=== PATIENT | female | born 1930 | race Caucasian/White ===

== ENCOUNTER 2017-05-10 16:52 | Emergency (ER) | payer OTHER, MEDICARE ==
[~2017-05-10] VITALS: Ht 149.9 cm; Wt 49.9 kg
--- NOTE | 2017-05-10 17:46 | ED SKIN/ALLERGY COMPLAINT ---
History of Present Illness General Chief Complaint: General Adult Stated Complaint: "PER DAUGTHER,"WALKIN SENT TO GET IV" Source: patient, family Exam Limitations: no limitations Vital Signs & Intake/Output Vital Signs & Intake/Output Vital Signs Date Time Temp Pulse Resp B/P B/P Pulse O2 O2 Flow FiO2 Mean Ox Delivery Rate 05/10 1704 97.2 81 16 172/78 94 Room Air Allergies Coded Allergies: clarithromycin (From BIAXIN) (UNKNOWN 05/10/17) Reconcile Medications Cephalexin (Keflex) 500 MG CAPSULE 1 CAP PO TID cellulitis Triage Note: PT WAS SENT IN BY WALK IN FOR CELLULITIS LLE. PT STATES SHE SHAVED HER LEG AND IT GOT AN INFECTION WALK IN FELT SHE NEEDED IV ABX. Triage Nurses Notes Reviewed? yes Onset: Gradual Duration: worse persistent since (2 days) Timing: no prior history Severity: moderate Severity Numbers: 5 Location: extremities Possible Factors: recent cut No Modifying Factors: none Associated Symptoms: redness/swelling HPI: Patient is an 86-year-old female presenting to the emergency department with her daughter with chief complaint of laceration to left lower extremity and on Friday of this week and over the past 2 days they have noticed increased redness around the laceration site. No history of diabetes. Patient denies any pain. She does report that she noticed redness. The daughter tried to bring her to a walk-in clinic this evening and they thought that she may need IV antibiotics so they sent her in for evaluation. Patient denying any fevers or chills. No malaise. Denies chest pain palpitations or shortness of breath. Has not been taking anything for the Symptoms. Denies any discharge from the wound. (Brittany George) Past History Travel History Traveled to [place] past 21 day No Medical History Any Pertinent Medical History? see below for history Cardiovascular: hypertension, hyperlipidemia, [place] 2015 Musculoskeletal: osteoarthritis Surgical History Surgical History: non-contributory Psychosocial History What is your primary language Urdu Tobacco Use: Never used ETOH Use: denies use Illicit Drug Use: denies illicit drug use Family History Hx Contributory? No (Brittany George) Review of Systems Review of Systems Constitutional: Reports: no symptoms. Comments Review of systems: See HPI, All other systems negative. Constitutional, no chills fever or weight loss HEENT: No visual changes no sore throat no congestion Cardiovascular: No chest pain ,palpitation , orthopnea or ankle swelling Skin, no jaundice Respiratory: No dyspnea cough sputum or hemoptysis GI: No nausea no vomiting : No dysuria No hematuria Muscle skeletal: no back pain, no neck pain, Neurologic: No numbness no confusion no headaches Psych: No stress anxiety or depression,. Heme/endocrine: No bruising no bleeding no polyuria or polydipsia Immunology: No splenectomy or history of AIDS (Brittany George) Physical Exam Physical Exam General Appearance: well developed/nourished, no apparent distress, alert, awake , comfortable Comments: Well-developed well-nourished person in no acute distress HEENT: Atraumatic, normocephalic Neck: Normal inspection Back: Nontender, no CVA tenderness. Full range of motion Cardiovascular: Regular rate and rhythms no murmurs rubs or gallops, normal JVP Respiratory: Chest nontender. No respiratory distress.breath sounds clear to auscultation bilaterally Extremity: No calf pain to palpation bilaterally in the lower extremities. Pedal pulses are 2+ bilaterally. 1+ pitting edema noted in the left lower extremity surrounding the laceration. Full range of motion of flexion without difficulty or pain. Neuro: Alert oriented x3, motor sensory normal Skin: Patient has healing laceration approximately 8 cm in length over the left posey with surrounding erythema approximately 4-5 cm, warm to palpation in this area. No drainage or discharge noted from the laceration. Laceration appears superficial. Psych: Mood and affect is normal, memory and judgment is normal. (Brittany George) Progress Differential Diagnosis: abscess/cellulitis, skin abrasion, laceration, contusion Plan of Care: Orders Procedure Date/time Status BLOOD CULTURE 05/10 1744 Active COMPREHENSIVE METABOLIC PANEL 05/10 1744 Complete CBC WITHOUT DIFFERENTIAL 05/10 1744 Complete Laboratory Tests 05/10/17 1750: Anion Gap 14, Estimated GFR 59 L, BUN/Creatinine Ratio 26.7 H, Glucose 138 H, Calcium 10.0, Total Bilirubin 0.3, AST 32, ALT 32, Alkaline Phosphatase 49, Total Protein 7.2, Albumin 4.2, Globulin 3.0, Albumin/Globulin Ratio 1.4, CBC w Diff NO MAN DIFF REQ, RBC 4.08 L, MCV 90.2, MCH 30.6, RDW 13.2, MPV 9.2, Gran % 62.0, Lymphocytes % 25.4, Monocytes % 9.9 H, Eosinophils % 2.0, Basophils % 0.7 , Absolute Granulocytes 5.0, Absolute Lymphocytes 2.1, Absolute Monocytes 0.8 H , Absolute Eosinophils 0.2, Absolute Basophils 0.1, PUBS MCHC 33.9 Microbiology 05/10 1806 BLOOD: Blood Culture - RECD 05/10 1749 BLOOD: Blood Culture - RECD 05/10/2017 6:18:23 PM patient is afebrile, in no acute distress, no history of diabetes. We will check blood work. Patient may make good outpatient candidate for oral antibiotics and follow up closely with primary care physician. 05/10/2017 6:34:17 PM patient still afebrile, no elevation in white blood cell count. Patient receiving IV Unasyn at this time. She'll be discharged home with by mouth Keflex starting tomorrow. She'll follow up with her primary care physician on Friday. She was instructed on signs and symptoms to return. Discussed with Dr. Tidwell and he agrees with the plan. (Brittany George) Departure Departure Time of Disposition: 1830 Disposition: HOME OR SELF CARE Condition: Stable Clinical Impression Primary Impression: Cellulitis Qualifiers: Site of cellulitis: extremity Site of cellulitis of extremity: lower extremity Laterality: left Qualified Code: L03.116 - Cellulitis of left lower limb Secondary Impressions: Hypertension Qualifiers: Hypertension type: essential hypertension Qualified Code: I10 - Essential (primary) hypertension Referrals: Ela TAYLOR,Ev Monge (PCP/Family) Additional Instructions: Follow-up with your primary care physician on Friday for a wound check. Keep area clean. Wash daily with soap and water. Take antibiotics as prescribed. Start antibiotics tomorrow May 11. Take [id number] Tylenol for any aches or pains. Return if you develop any fevers worsening redness or concerns. Departure Forms: Customer Survey General Discharge Information Prescriptions: Current Visit Scripts Cephalexin (Keflex) 1 CAP PO TID #30 CAP (Brittany George) PA/MAIL FORWARDING SYSTEM MARKUP CLERK Co-Sign Statement Statement: ED Attending supervision documentation- [X] I saw and evaluated the patient. I have also reviewed all the pertinent lab results and diagnostic results. I agree with the findings and the plan of care as documented in the PA's/MAIL FORWARDING SYSTEM MARKUP CLERK's documentation. [X] I have reviewed the ED Record and agree with the PA's/MAIL FORWARDING SYSTEM MARKUP CLERK's documentation. [] Additions or exceptions (if any) to the PAs/MAIL FORWARDING SYSTEM MARKUP CLERK's note and plan are summarized below: [] (Yaw TAYLOR,Juanito Arnold)
[2017-05-10 18:10] LABS: ABSOLUTE BASOPHIL COUNT 0.1 /CUMM (0.0-0.2); ABSOLUTE EOSINOPHIL COUNT 0.2 /CUMM (0.0-0.7); ABSOLUTE LYMPH COUNT 2.1 /CUMM (1.2-3.4); ABSOLUTE MONOCYTE COUNT 0.8 /CUMM (0.10-0.60); BASOPHIL % 0.7 % (0.0-2.0); HEMATOCRIT 36.8 % (37-47); MEAN CORPUSCULAR HGB 30.6 PG (27.0-31.0); MEAN CORPUSCULAR HGB CONC 33.9 G/DL (33.0-37.0); MEAN CORPUSCULAR VOLUME 90.2 FL (81.0-99.0); MEAN PLATELET VOLUME 9.2 FL (7.4-10.4); PLATELET COUNT 277 /CUMM (130-400); RBC DISTRIBUTION WIDTH 13.2 % (11.5-14.5); RED BLOOD CELL CT 4.08 /CUMM (4.20-5.40); WHITE BLOOD CELL COUNT 8.1 /CUMM (4.8-10.8)
[2017-05-10] MEDS ORDERED: KEFLEX500 M1 PO (18:32)
[2017-05-10 19:17] VITALS: BP 152/81
== END 2017-05-10 19:58 ==
LOC: ERH 16:52
PROVIDERS: Physician Assistant
DX: L03.116 Cellulitis of left lower limb (principal); I10 Essential (primary) hypertension
CPT/HCPCS: 87040; 96374